=== PATIENT | female | born 1990 ===

== ENCOUNTER 2020-07-15 23:03 | Outpatient (REF) | payer OTHER, SELFPAY ==
[2020-07-16 18:22] LABS: COVID-19 RT-PCR Result NEGATIVE (Negative)
== END 2020-07-15 23:23 ==
LOC: NCHCN 23:03
PROVIDERS: PCP Nurse Practitioner Family; Visit Provider Nurse Practitioner Family
DX: R53.83 Other fatigue (principal)
CPT/HCPCS: U0003

== ENCOUNTER 2020-07-28 18:42 | Outpatient (REF) | payer OTHER, SELFPAY ==
[2020-07-29 21:49] LABS: COVID-19 RT-PCR Result NEGATIVE (Negative)
== END 2020-07-28 19:02 ==
LOC: NCHCN 18:42
PROVIDERS: PCP Nurse Practitioner Family; Visit Provider Nurse Practitioner Family
DX: Z20.828 Contact with and (suspected) exposure to other viral communicable diseases (principal)
CPT/HCPCS: U0003